=== PATIENT | female | born 1945 | race Caucasian/White ===

== ENCOUNTER 2017-09-16 06:27 | Day surgery (SDC) | payer OTHER ==
[~2017-09-16] VITALS: Ht 162.6 cm; Wt 74.4 kg
[~2017-09-16 06:27] MED LIST: ALEN70TA47 PO; ASPI-555 PO; ATOR10TA69 PO; CALC500T7 PO; ESCI20TA36 PO; MULT-1203 PO; MV-M1TAB20 PO; UBID30CA11 PO
[2017-09-16] MEDS ORDERED: SODIUM CHLORIDE 0.9% 1000ML 1,000 ML IV ONE (06:49)
[2017-09-16 07:10] VITALS: BP 112/55
[2017-09-16 08:34] VITALS: BP 86/33
== END 2017-09-16 09:04 | disposition home or self-care (01) ==
LOC: DAH 06:27 → ENDO 06:27
PROVIDERS: ATTEND Internal Medicine Gastroenterology
DX: Z09 Encounter for follow-up examination after completed treatment for conditions other than malignant neoplasm (principal); Z86.010 Personal history of colon polyps; Z68.32 Body mass index [BMI] 32.0-32.9, adult; Z79.899 Other long term (current) drug therapy; K21.9 Gastro-esophageal reflux disease without esophagitis; K58.9 Irritable bowel syndrome, unspecified; E78.5 Hyperlipidemia, unspecified; I25.10 Atherosclerotic heart disease of native coronary artery without angina pectoris; M19.90 Unspecified osteoarthritis, unspecified site; F32.9 Major depressive disorder, single episode, unspecified; Z90.710 Acquired absence of both cervix and uterus; Z98.890 Other specified postprocedural states; Z88.0 Allergy status to penicillin; Z88.8 Allergy status to other drugs, medicaments and biological substances
CPT/HCPCS: 45378; 93005; A4606; J7030